=== PATIENT | male | born 1945 | race Caucasian/White ===

== ENCOUNTER 2024-08-20 08:57 | Outpatient (CLI) | payer MEDICARE, BC, SELFPAY ==
--- NOTE | 2024-08-20 | ECG_ITS ---
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 Interpretive Statements LEXISCAN SESTAMIBI STRESS TEST Procedure: At the baseline, the blood pressure was 174/86mmHg with a heart rate of 59bpm. The electrocardiogram showed normal sinus rhythm, normal axis with normal ST and T's. The Lexiscan was infused over a period of 20 seconds. A total of 0.4 mg of Lexiscan was infused. The stress phase was continued for a total of 5 minutes. Heart rate was at the end of stress phase was 73 bpm and a blood pressure of 136/66 mmHg. The EKG at the peak infusion revealed normal sinus rhythm with no significant ST-T wave changes. Sestamibi was injected 20 seconds after the Lexiscan infusion. Blood pressure at the end of recovery phase was 148/75 mmHg with a heart rate of 75 bpm. Conclusion: 1. Normal EKG response to Lexiscan infusion 2. No Lexiscan induced chest pain or cardiac arrhythmia. 3. Normal blood pressure and heart rate response. 4. Sestamibi/sestamibi perfusion scan pending; see separate report. Electronically Signed On 08-23-2024 20:23:50 CDT by Sathya Escalante M.D. [email or web address]
[2024-08-20 09:16] VITALS: BMI 28.8
--- NOTE | 2024-08-20 09:16 | NMCV_ITS ---
NM jenny perf SPECT r/s* [id number] Feliciano Lopez Age: 78 Gender: M : 1945 Exam Date: 08/20/2024 09:16 Ordering Phys: Teddy George Technologist: ZENIA Wilde Exam Location: [facility] Indications: cp STRESS TEST [facility] IMAGE PROTOCOL Rest/Stress 1 Lexiscan Day Radiopharmaceutical Dose (mCi) Administration Site Administered by Rest: Tc-99m 10.9 IV Eva Randolph, CREATIVE SERVICES COORDINATOR Sestamibi Stress:Tc-99m 33 IV Eva Agustín, CREATIVE SERVICES COORDINATOR Sestamibi Rest: 20-Aug-2024 60 Discovery 630 Stress: 20-Aug-2024 30 Discovery 630 0.4mg Lexiscan. Images obtained in supine and prone position. SPECT RESULTS Technical Quality: Good Raw Data Analysis: Normal Image Corrections: No attenuation or motion correction applied Summed Stress Score: 0 Summed Rest Score: 0 Summed Difference Score: 0 PERFUSION FINDINGS Large area of fixed perfusion defect noted in basal to distal inferior wall of the left ventricle surrounded by moderate area mild to moderate reversibility suggestive of old myocardial infarction surrounded by mild to moderate ischemia in RCA territory. FUNCTIONAL RESULTS (calculated via Gated SPECT) Stress Image LV EF (%): 67 Stress EDV (mL):91 TID: 1.27 Stress ESV (mL):30 FUNCTIONAL FINDINGS: There is normal left ventricular systolic function. TID ratio is elevated which could be secondary to left ventricular hypertrophy however cannot rule out multivessel coronary artery disease. 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 Anatoliy Gordon MD (Electronically Signed) Final Date: 20 August 2024 13:48 S
[2024-08-20] MEDS: regadenoson 0.4 Mg/5 ml Syringe IVP (10:24)
[2024-08-20] MEDS: ondansetron 2 mg/ML SDV 2 mL 4 MG IVP (10:40)
[2024-08-20 10:43] VITALS: BP 148/75; PULSE 72
== END 2024-08-20 08:58 | disposition home or self-care (01) ==
PROVIDERS: PCP Family Medicine; Visit Provider Family Medicine
DX: I20.89 Other forms of angina pectoris (principal); R94.39 Abnormal result of other cardiovascular function study
CPT/HCPCS: 36415; 78452; 93017; 96374; A9500; J2405; J2785

== ENCOUNTER → 2024-09-09 12:23 | Outpatient (BNVA) | payer MEDICARE, BC, SELFPAY | PROVIDERS: PCP Family Medicine; Visit Provider Internal Medicine Cardiovascular Disease | DX: R94.31 Abnormal electrocardiogram [ECG] [EKG] (principal); I49.8 Other specified cardiac arrhythmias; R07.9 Chest pain, unspecified | CPT/HCPCS: 93005; 99204 ==

== ENCOUNTER 2024-09-27 05:42 | Outpatient (CLI) | payer MEDICARE, BC, SELFPAY ==
[2024-09-27] VITALS (8 sets, daily range): BP systolic 131–155; BP diastolic 71–87; PULSE 52–79; RESP 12–17; TEMP 36.6–36.7; O2SAT 96–98; BMI 27.9
--- NOTE | 2024-09-27 06:00 | XACV_ITS ---
Exam Room: 2 Ht: 173 cm Wt: 83 kg BSA: 2.02 m2 Gender: Male : 1945 Any Known Allergies: No known allergies Exam Priority: Routine Indication(s): - Chest pain - Abnormal stress perfusion study Procedure(s): Procedure Description: Diagnostic procedure Procedure Description: Coronary Angiography ERIKA, Heidi; Diagnostic Cath Status: Elective Diagnostic Findings * Indication first left heart catheterization: Chest pain/abnormal stress test. Recommendations * Usual post cath care, aggressive medical management for nonobstructive coronary artery disease. Diagnostic RX Recommendation: medical therapy and/or counseling Ventriculography Ejection Fraction: 65.0 % Pressures Phase:Rest AO : 141 / 72 ( 97 ) @ 8:18:00 AM 127 / 67 ( 92 ) @ 8:19:00 AM 118 / 71 ( 93 ) @ 8:19:00 AM 170 / 73 ( 112 ) @ 8:30:00 AM 171 / 72 ( 114 ) @ 8:30:00 AM LV : 164 / -14 / 10 @ 8:28:00 AM 161 / -12 / 13 @ 8:29:00 AM 165 / -11 / 14 @ 8:30:00 AM Valves Phase:DefaultPhase AV : 0.0 @ 8:49:49 AM AV Mean Gradient: 0.0 @ 8:49:49 AM Clinical Evaluation EBL: 5mL-10mL Procedural Details Procedure Consent Obtained. Pre-Procedure Time Out. Identified patient by full name and date of as verbalized by the patient/guarantor. Does the consent match the physician's order: Yes. Accurate & Complete Informed Consent: Yes. Inpatient/Outpatient History & Physical on Chart: Yes. If H&P is completed, is and addenduem needed: No; If yes, is the addendum complete: N/A. Visualize and Verify Site with Patient/Guarantor: N/A. Relevant Radiology Images available: N/A. The risks, benefits, and alternatives of sedation and/or procedure were discussed by physician. The patient agrees to continue. Procedure started. [facility] Clinical Fraility Score: 3: Managing Well. Mangle Catcher Indications: Other. Chest Pain Symptom Assessment: Atypical Angina. Cardiovascular Instability: No. Correct patient, site and procedure confirmed by cath team. Current diagnosis: Chest Pain. PERRLA. 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 Lungs clear x 5 lobes. IV Site on Arrival: 20 gauge in the left anticubital. IV Site on Arrival: 20 gauge in the right anticubital. IV Fluids: 0.9% NaCl at KVO. 0 mL infused prior to laborer syrup machine. Pre Procedural Pulses: bilateral dorsalis pedis was Doppled. Pre Procedural Pulses: bilateral posterior tibial was Doppled. Pre Procedural Pulses: bilateral radial was 3+. Oxygen started at 3liters/min via nasal canula. bilateral groins was prepped with chloroprep then draped in the usual sterile fashion. Physician notified. Baseline sample Acquired. HR: 61 BPM. Baseline sample Acquired. HR: 61 BPM. Physician arrived. Physician scrubbed in. Family updated by MD prior to arrival. Current Diagnosis : Chest Pain. Immediate Pre-Procedure Time Out. Correct Patient: Yes; Correct Procedure: Yes; Correct Site: Yes; Correct Patient Position: Yes; Correct Supplies: Yes; Dried Flammable Prep: Yes; Blood Products Available: N/A;. Lidocaine 1% infiltrated to the right groin. Arterial access obtained. A 5 tuvaluan JL4 catheter in over wire. Multiple views taken of left coronary artery. Catheter removed over the standard wire. A 5 tuvaluan JR4 catheter in over wire. Multiple views taken of right coronary artery. Catheter removed over the standard wire. A 5 tuvaluan Angled Pig catheter in over wire. EDP Sample taken: LV 164/-15,10; HR: 61 BPM; SpO2: 100%. LV gram performed in MELENDEZ @ 10 mL/second for a total of 30 mL. EDP Sample taken: LV 161/-13,13; HR: 61 BPM; SpO2: 99%. Patient EF: Normal. Pullback taken: LV 165/-12,14; AO 170/73(112); Mean: 0mmHg, Peak to Peak: 0mmHg, SEP: 5sec/min; HR: 61 BPM; SpO2: 99%. Catheter removed over the standard wire. Physician review of films. A Right femoral angiogram was performed to determine safe placement of closure device. A Angio-Seal VIP ([facility]) was successful obtaining hemostatsis at the Right Femoral artery insertion site. Angioseal placed without complications. No signs or symptoms of hematoma noted. Sterile dressing applied per usual sterile fashion. Post Procedure: Pulses reassessed and unchanged. PERRLA. 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 No VTE prophylaxis required. Medication waste: Heparin - 1000 units Versed- 1 mg Fentanyl- 50 mcg. Total IV fluids: 50 mL. Fluoro: 3:02. Contrast type used: Visipaque 320 mgI/mL, 100 mL bottle. [id number]. Post-op diagnosis: Non Obstuctive CAD. Complications: None. Estimated blood loss: 5mL-10mL. Responsiveness - Normal response to verbal stimuli; alert and oriented, PERRLA. Airway - Unaffected, no intervention required; spontaneous ventilation. Circulation: W/N/L, pulses unchanged. Nausea/Vomiting: No. Procedure completed. Patient transferred by bed to 1st floor. Admit Source: Out Patient. Vital chart was stopped. Access Site Site: Right Femoral artery Sheath Size: 6 Fr Hemostasis Method: Angio-Seal VIP ([facility]) Hemostasis Success: Successful Procedure Medications Start: 8:04 AM Stop: 8:04 AM Medication: Versed Amount: 1 mg Route: I.V. Start: 8:04 AM Stop: 8:04 AM Medication: Fentanyl Amount: 50 mcg Route: I.V. I, the attending physician, have reviewed and verified all procedure medications. Yes, all medications given per verbal order History/Risk Factors Hypertension: No Dyslipidemia: No Peripheral Arterial Disease (PAD): No Myocardial Infarction (WI): No Obesity: Yes Renal Disease: No Tobacco Use: Former Prior Interventions PCI: No CABG: No Valve Surgery: No Report Signatures Finalized by Anatoliy Gordon MD on 10/16/2024 08:45 PM
[2024-09-27 06:12] LABS: Basophils # 0.1 10^3/uL (0.0-0.1); Basophils % 1.1 %; Eosinophils # 0.3 10^3/uL (0.0-0.8); Eosinophils % 5.5 %; Hematocrit 42.8 % (37-53); Lymphocytes # 1.2 10^3/uL (0.8-4.8); Mean Corpuscular HGB Conc 32.2 g/dL (30-55); Mean Corpuscular Hemoglobin 31.2 pg (27-33); Mean Corpuscular Volume 96.6 fl (82-101); Mean Platelet Volume 10.1 fL (7.4-10.4); Monocytes # 0.7 10^3/uL (0.2-0.9); Monocytes % 13.4 %; Neutrophils # 3.16 10^3/uL (1.8-7.7); Neutrophils % 57.8 %; Nucleated Red Blood Cells % 0 %; Platelet Count 128 10^3/cmm (157-399); Red Blood Count 4.43 10^6/uL (3.85-5.65); Red Cell Distribution Width 14.2 % (12.1-15.1); White Blood Count 5.46 10^3/uL (3.29-11.43)
[2024-09-27] MEDS: diphenhydrAMINE 50 mg Capsule PO (06:15)
[2024-09-27 06:29] LABS: Anion Gap 15.4 (5-19); Blood Urea Nitrogen 25 mg/dL (8-23); Calcium 9.2 mg/dL (8.5-10.5); Carbon Dioxide 23 mmol/L (22-29); Chloride 104 mmol/L (98-107); Glucose 143 mg/dL (65-115); Osmolality Calculated 293 mOsm/kg (285-295); Potassium 4.4 mmol/L (3.5-5.1); Sodium 138 mmol/L (136-145)
--- NOTE | 2024-09-27 06:43 | SUR.PREOP ---
Patients creatinine is 1.[address] Gordon notified in person. New orders received for a NS bolus of 250mL followed by NS at 100mL/hr.
--- NOTE | 2024-09-27 06:48 | SUR.PREOP ---
A 250mL NS bolus was administered followed by NS at 100mL/hr.
--- NOTE | 2024-09-27 07:46 | W.PM.OPSUD ---
Surgery/Procedure H&P Update DATE OF PROCEDURE: September 27, 2024 DATE H&P PERFORMED: 09/09/24 PREOP DIAGNOSIS: Abnormal stress test/chest pain PLANNED PROCEDURE: Operation Date: 09/27/24 07:00 Proposed Procedures p Cardiac Catheterization-RLHC w/w/o LV & kellee(Bilateral) - Anatoliy Gordon MD PATIENT REASSESSED PRIOR TO SEDATION, WITH NO CHANGE NOTED: Yes PHYSICAL EXAM: alert, oriented x 3, clear to auscultation bilaterally, regular rate & rhythm and operative site marked AIRWAY EVAL/ANESTHESIA PLAN: ASA II, Risks, benefits & alternatives of sedation and/or procedure discussed and Patient agrees to continue as planned ADDITIONAL INFORMATION: Mallampati 2
--- NOTE | 2024-09-27 09:21 | PC.NURSE ---
Patient transferred to CSU from cardiac cath lab technologist at 0855 with a right angioseal. NS running at 100ml/hr. (took registration 30minutes to transferred patient to our board).
[2024-09-27] MEDS: sodium chloride 0.9% 1,000 ML 50 ML IV (10:05)
--- NOTE | 2024-09-27 14:40 | PC.NURSE ---
Patient is given discharge instructions. Patient verbalizes understanding. Patient leaves with son.
== END 2024-09-27 14:35 | disposition home or self-care (01) ==
LOC: CCL 05:47 → CSU 09:20
PROVIDERS: PCP Family Medicine; Visit Provider Internal Medicine Cardiovascular Disease
DX: R94.39 Abnormal result of other cardiovascular function study (principal); R07.9 Chest pain, unspecified; E66.9 Obesity, unspecified; Z68.28 Body mass index [BMI] 28.0-28.9, adult
CPT/HCPCS: 36415; 80048; 85025; 93458; 96365; 99152; C1760; C1769; C1894; G0269; J1644; J2250; J3010; J7030; Q0163; Q9967

== ENCOUNTER → 2024-10-08 14:00 | Outpatient (BNVA) | payer MEDICARE, BC, SELFPAY | PROVIDERS: PCP Family Medicine; Visit Provider Nurse Practitioner Family | DX: I25.10 Atherosclerotic heart disease of native coronary artery without angina pectoris (principal); Z87.891 Personal history of nicotine dependence | CPT/HCPCS: 99213 ==

== ENCOUNTER → 2024-12-06 10:43 | Outpatient (BNVA) | payer MEDICARE, BC, SELFPAY | PROVIDERS: PCP Family Medicine; Visit Provider Nurse Practitioner Family | DX: K21.9 Gastro-esophageal reflux disease without esophagitis (principal) | CPT/HCPCS: 99213 ==